=== PATIENT | female | born 2000 | race Caucasian/White ===

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

== ENCOUNTER 2020-03-01 05:17 | Inpatient (IN) | payer SELFPAY ==
[2020-03-01] MEDS ORDERED: Sodium Chloride 0.9% 10 ML SDV IV PRN (05:21)
[2020-03-01] MEDS ORDERED: Citric Acid/Sodium Citrate Solution 30 ML Cup PO ONE (05:21)
[2020-03-01] MEDS ORDERED: Sodium Chloride 0.9% 10 ML Syringe FLUSH PRN (05:21)
[2020-03-01] MEDS ORDERED: Sodium Chloride 0.9% 2.5 ML Syringe FLUSH PRN (05:21)
[2020-03-01] MEDS ORDERED: ceFAZolin 2 GM in Premix Bag 1 BAG IV ONE (05:21)
[2020-03-01] MEDS ORDERED: Oxytocin/0.9 % Sodium Chloride 30 UNIT/500 ML BAG IV SCH (05:30)
[2020-03-01] MEDS: Lactated Ringers 1,000 ML IV SCH ×2 (06:05→06:41)
[2020-03-01] MEDS ORDERED: Morphine PF 10 MG/10 ML SDV ONE (07:19)
[2020-03-01] MEDS ORDERED: Octyl 2-Cyanoacrylate 1 Tube ONE ×2 (07:45→08:58)
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
[2020-03-01] MEDS ORDERED: fentaNYL 100 MCG/2 ML SDV ONE (07:51)
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
[2020-03-01] MEDS ORDERED: ceFAZolin/Dextrose,Iso-Osmotic 2 GM/50 ML Duplex Bag IV ONE (08:06)
[2020-03-01] MEDS ORDERED: Oxytocin 10 Units/1 ML SDV ONE (08:27)
[2020-03-01] MEDS ORDERED: Ondansetron 4 MG/2 ML SDV ONE (08:29)
[2020-03-01] MEDS ORDERED: Dexamethasone 4 MG/ML 5 ML MDV ONE (08:29)
--- NOTE | 2020-03-01 08:33 | PCM.SN.2 ---
- Free Text/Narrative Note: Spinal done with a sterile technique. patient in sitting position, back prepped with chlora prep and draped. 1% lidocaine 3 ml for skin infiltration. 25 g pencan needle. +csf, no heme. There were no paresthesias. 0804 hyperbaric bupivacaine 1.6 ml and 0.20 mg of duramorph given without any paresthesias.. patient maintained communication throughout the entire procedure and tolerated the procedure well. T6 sensory level. one attempt.
[2020-03-01] MEDS ORDERED: Ketorolac 30 MG/ML SDV ONE (08:39)
[2020-03-01] MEDS ORDERED: Tranexamic Acid 1,000 MG in Sodium Chloride 0.9% 100 ML IV PRN (08:47)
[2020-03-01] MEDS ORDERED: Lanolin 100% Cream 7 GM Tube TOP PRN (08:47)
[2020-03-01] MEDS ORDERED: Ondansetron 4 MG/2 ML SDV IVPUSH PRN (08:47)
[2020-03-01] MEDS ORDERED: Methylergonovine 0.2 MG/1 ML Amp IM PRN (08:47)
[2020-03-01] MEDS ORDERED: Misoprostol 200 MCG Tab RECTAL PRN (08:47)
[2020-03-01] MEDS ORDERED: Ibuprofen 800 MG Tab PO PRN (08:47)
[2020-03-01] MEDS ORDERED: Acetaminophen/oxyCODONE 325-5 MG Tab PO PRN (08:47)
[2020-03-01] MEDS ORDERED: diphenhydrAMINE 50 MG/ML SDV IVPUSH PRN ×3 (08:47→11:18)
[2020-03-01] MEDS ORDERED: Oxytocin 10 Units/1 ML SDV IM PRN (08:47)
[2020-03-01] MEDS ORDERED: Bisacodyl 10 MG Supp RECTAL PRN (08:47)
[2020-03-01] MEDS ORDERED: Nalbuphine 10 MG/1 ML Vial IVPUSH PRN ×3 (08:51→11:18)
[2020-03-01] MEDS ORDERED: Naloxone 0.4 MG/ML Syringe IVPUSH PRN ×2 (08:51→11:18)
--- NOTE | 2020-03-01 08:51 | PCM.OPNOTE ---
- General Post-Op/Procedure Note Date of Surgery/Procedure: 03/01/20 Operative Procedure(s): REpeat C/section Pre Op Diagnosis: IUP 39+ previous C/section Post-Op Diagnosis: Same Anesthesia Technique: Spinal Primary Surgeon: Edwar Angeles Consulting Property Manager: Akilah Jaimes Consulting Property Manager: Carly Calvillo EBL in mLs: 800 Surgical Drain/Tube Type: Nephrostomy Complications: None Condition: Good
[2020-03-01] MEDS ORDERED: Lactated Ringers 1,000 ML IV SCH (09:00)
--- NOTE | 2020-03-01 10:38 | PCM.POSTAN ---
POST ANESTHESIA ASSESSMENT - MENTAL STATUS Mental Status: Alert, Oriented - VITAL SIGNS Vital Signs: Last Vital Signs Temp 35.7 C L 03/01/20 09:10 Pulse 94 03/01/20 10:01 Resp 14 03/01/20 10:01 BP 118/61 03/01/20 10:01 Pulse Ox 99 03/01/20 10:01 - RESPIRATORY Respiratory Status: Respiratory Rate WNL, Airway Patent, O2 Saturation Stable - CARDIOVASCULAR CV Status: Blood Pressure Stable, Slow Pulse Rate - GASTROINTESTINAL GI Status: No Symptoms - PAIN Pain Score: 0 - POST OP HYDRATION Hydration Status: Adequate & Stable - OBSERVATIONS Free Text/Narrative:: The patient has no complaints at this time. There were no apparent anesthetic complications at this time. Discharge to floor per criteria.
[2020-03-01] MEDS: Docusate Sodium 100 MG Cap PO SCH ×2 (10:51→22:16)
[2020-03-01] MEDS: Ketorolac 30 MG/ML SDV IVPUSH SCH ×3 (11:38→22:16)
--- NOTE | 2020-03-01 12:07 | PCM.SN.2 ---
- Free Text/Narrative Note: RN called to discuss inability to find nubain order for itching. She was told by the [facility] that we do not have any Nubain, and we might not get any until 2020. Discussed this with the patient, and the alternative which is narcan or benadryl. She refused the benadryl at this time because it makes her itching worse.
--- NOTE | 2020-03-01 12:18 | OR ---
SURGEON: Edwar Angeles MD DATE OF PROCEDURE: 03/01/2020 PREOPERATIVE DIAGNOSES: Intrauterine at 39+ weeks, previous section, admitted for elective repeat section. POSTOPERATIVE DIAGNOSES: Intrauterine at 39+ weeks, previous section, admitted for elective repeat section. OPERATION PERFORMED: Repeat low transverse section. PRIMARY SURGEON: Edwar Anegles MD ASSISTANTS: Akilah Jaimes, certified nurse blood bank laboratory technologist, and Carly Calvillo. ESTIMATED BLOOD LOSS: 800 mL. ANESTHESIA: Spinal, Dr. Alexander. COMPLICATIONS: None. FINDINGS: Male fetus. score reported to be 8 and 9. Weight is not available at the time of the dictation. INDICATIONS FOR SURGERY: This patient had previous section. She is admitted for elective repeat section. DESCRIPTION OF PROCEDURE: The patient was brought to the OR, properly identified, and after adequate level of spinal anesthesia with a Solorio catheter in the bladder, the patient prepped and draped in sterile fashion as usual. Low transverse Pfannenstiel skin incision done. Jono's fascia and rectus fascia were opened in direction of the incision. The 2 recti muscles were . Peritoneal cavity was entered and bladder flap was raised in the usual manner, pushing the bladder away from the lower uterine segment. Low transverse uterine incision was done, extended manually with the hand, and the fetus presentation was in the vertex. The fetus was delivered without any problem, cried immediately, handed to resuscitating team for further resuscitation. The score later on reported to be 8 and 9. The weight is not available at the time of the dictation. Placenta delivered spontaneous, complete, and intact, and repair of the lower uterine segment was done with 2-0 Vicryl continuous interlocking in 2 layers. The peritoneal cavity evacuated completely from all blood and blood clot and closed with 2-0 Vicryl continuous and the rectus fascia was closed with #1 PDS double strand continuous. Jono fascia with 3-0 Vicryl continuous. The skin closed with 3-0 Vicryl on a Jose needle in a subcuticular fashion and Dermabond. Instrument and sponge count was correct. The patient tolerated the procedure well, went to recovery room in stable general condition. JOSUE / NHI /[id number]
[2020-03-02] MEDS: Ketorolac 30 MG/ML SDV IVPUSH SCH ×2 (04:04→08:11)
--- NOTE | 2020-03-02 07:26 | PCM48HPAN ---
Post Anesthesia Note - EVALUATION WITHIN 48HRS OF ANESTHETIC Vital Signs in Normal Range: Yes Patient Participated in Evaluation: Yes Respiratory Function Stable: Yes Airway Patent: Yes Cardiovascular Function Stable: Yes Hydration Status Stable: Yes Pain Control Satisfactory: Yes Nausea and Vomiting Control Satisfactory: Yes Mental Status Recovered: Yes Vital Signs: Last Vital Signs Temp 36.1 C 03/02/20 04:00 Pulse 74 03/02/20 06:40 Resp 17 03/02/20 06:40 BP 119/62 03/02/20 04:00 Pulse Ox 97 03/02/20 06:40
--- NOTE | 2020-03-02 07:38 | PCM.PNPP ---
- General Info Date of Service: 03/02/20 Admission Dx/Problem (Free Text): Patient Status Order with Admit Dx/Problem 03/01/20 05:20 Patient Status [ADT] Routine Admission Diagnosis/Problem Admission Diagnosis/Problem 03/01/20 07:51 at 38 5/7 weeks (BENJY: 03/10/20). Presenting to L&D for repeat section. O+, rubella immune, GBS negative. Functional Status: Reports: Pain Controlled, Tolerating Diet, Ambulating, Urinating - Review of Systems General: Reports: No Symptoms HEENT: Reports: No Symptoms Pulmonary: Reports: No Symptoms Cardiovascular: Reports: No Symptoms Gastrointestinal: Reports: No Symptoms Genitourinary: Reports: No Symptoms Musculoskeletal: Reports: No Symptoms Skin: Reports: No Symptoms Neurological: Reports: No Symptoms Psychiatric: Reports: No Symptoms - General Info Date of Service: 03/02/20 - Patient Data Vital Signs - Most Recent: Last Vital Signs Temp 96.9 F 03/02/20 04:00 Pulse 74 03/02/20 06:40 Resp 17 03/02/20 06:40 BP 119/62 03/02/20 04:00 Pulse Ox 97 03/02/20 06:40 Weight - Most Recent: 280 lb I&O - Last 24 Hours: Intake & Output 03/01/20 03/02/20 03/02/20 22:59 06:59 14:59 Output Total 150 900 Balance -150 -900 Lab Results - Last 24 Hours: Laboratory Results - last 24 hr 03/02/20 Range/Units 05:02 Hgb 9.6 L (12.0-16.0) g/dL Hct 29.8 L (36.0-46.0) % Med Orders - Current: Current Medications Bisacodyl (Dulcolax) 10 mg RECTAL ONETIME PRN PRN Reason: Constipation Diphenhydramine HCl (Benadryl) 25 mg IVPUSH Q4H PRN PRN Reason: Itching Stop: 03/02/20 11:18 Docusate Sodium (Colace) 100 mg PO BID TRELL Last Admin: 03/01/20 22:16 Dose: 100 mg Documented by: Emollient Ointment (Lansinoh Hpa) 0 gm TOP ASDIRECTED PRN PRN Reason: Sore Nipples Oxytocin/Sodium Chloride (Oxytocin 30 Unit/500 Ml-Ns) 30 unit in 500 mls @ 250 mls/hr IV TITRATE [facility] Lactated Ringer's (Ringers, Lactated) 1,000 mls @ 500 mls/hr IV BOLUS [facility] Last Admin: 03/01/20 06:41 Dose: 500 mls/hr Documented by: Lactated Ringer's (Ringers, Lactated) 1,000 mls @ 125 mls/hr IV ASDIRECTED [facility] Last Admin: 03/01/20 10:57 Dose: 125 mls/hr Documented by: Tranexamic Acid 1,000 mg/ (Sodium Chloride) 110 mls @ 660 mls/hr IV ONETIME PRN PRN Reason: Bleeding Ibuprofen (Motrin) 800 mg PO Q8H PRN PRN Reason: mild pain or fever Ketorolac Tromethamine (Toradol) 30 mg IVPUSH Q6H [facility] Stop: 03/02/20 09:01 Last Admin: 03/02/20 04:04 Dose: 30 mg Documented by: Methylergonovine Maleate (Methergine) 0.2 mg IM ONETIME PRN PRN Reason: Excessive Vaginal Bleeding Misoprostol (Cytotec) 1,000 mcg RECTAL ONETIME PRN PRN Reason: excessive bleeding Naloxone HCl (Narcan) 0.1 mg IVPUSH ONETIME PRN PRN Reason: Respiratory Depression Stop: 03/02/20 11:18 Ondansetron HCl (Zofran) 4 mg IVPUSH Q4H PRN PRN Reason: Nausea/Vomiting Oxycodone/Acetaminophen (Percocet 325-5 Mg) 1 tab PO Q4H PRN PRN Reason: Pain (moderate 4-6) Oxycodone/Acetaminophen (Percocet 325-5 Mg) 2 tab PO Q4H PRN PRN Reason: Pain (moderate 4-6) Oxytocin (Pitocin) 10 unit IM ASDIRECTED PRN PRN Reason: Excessive Vaginal Bleeding Sodium Chloride (Saline Flush) 10 ml FLUSH ASDIRECTED PRN PRN Reason: Keep Vein Open Sodium Chloride (Saline Flush) 2.5 ml FLUSH ASDIRECTED PRN PRN Reason: Keep Vein Open Sodium Chloride (Normal Saline) 10 ml IV ASDIRECTED PRN PRN Reason: IV Use Discontinued Medications Cefazolin Sodium/Dextrose (Ancef) Confirm Administered Dose 2 gm IV .STK-MED ONE Stop: 03/01/20 08:07 Citric Acid/Sodium Citrate (Bicitra Solution) 30 ml PO ONETIME ONE Stop: 03/01/20 05:22 Dexamethasone (Dexamethasone) Confirm Administered Dose 20 mg .ROUTE .STK-MED ONE Stop: 03/01/20 08:30 Diphenhydramine HCl (Benadryl) 25 mg IVPUSH Q4H PRN PRN Reason: Itching Stop: 03/02/20 08:54 Last Admin: 03/01/20 09:28 Dose: 25 mg Documented by: Fentanyl (Sublimaze) Confirm Administered Dose 100 mcg .ROUTE .STK-MED ONE Stop: 03/01/20 07:52 Cefazolin Sodium/Dextrose 2 gm (/ Premix) 50 mls @ 100 mls/hr IV ONETIME ONE Stop: 03/01/20 05:50 Acetaminophen (Ofirmev) Confirm Administered Dose 100 mls @ as directed .ROUTE .STK-MED ONE Stop: 03/01/20 07:48 Cefazolin Sodium/Dextrose (Ancef) Confirm Administered Dose 50 mls @ as directed .ROUTE .STK-MED ONE Stop: 03/01/20 08:11 Ketorolac Tromethamine (Toradol) Confirm Administered Dose 30 mg .ROUTE .STK-MED ONE Stop: 03/01/20 08:40 Morphine Sulfate (Duramorph Pf) Confirm Administered Dose 10 mg .ROUTE .STK-MED ONE Stop: 03/01/20 07:20 Octyl Cyanoacrylate (Dermabond Advance) Confirm Administered Dose 1 applic .ROUTE .STK-MED ONE Stop: 03/01/20 07:46 Octyl Cyanoacrylate (Dermabond Advance) Confirm Administered Dose 1 applic .ROUTE .STK-MED ONE Stop: 03/01/20 08:59 Ondansetron HCl (Zofran) Confirm Administered Dose 4 mg .ROUTE .STK-MED ONE Stop: 03/01/20 08:30 Oxytocin (Pitocin) Confirm Administered Dose 20 unit .ROUTE .STK-MED ONE Stop: 03/01/20 08:28 - Infant Interaction Infant Disposition, : [place] in Room with Family Infant Interaction: Holding Infant Feeding: Bottle Fed Support Person: - Recovery Exam Fundal Tone: Firm Fundal Level: 2 Fingerbreadths Below Umbilicus Fundal Placement: Midline Lochia Amount: Small Lochia Color: Rubra/Red Perineum Description: Intact, Minimal Bruising/Swelling Episiotomy/Laceration: None Bladder Status: Voiding Urinary Elimination: Voided - Exam General: Alert, Oriented, Cooperative, No Acute Distress Lungs: Clear to Auscultation, Normal Respiratory Effort Cardiovascular: Regular Rate, Regular Rhythm GI/Abdominal Exam: Soft, Non-Tender Extremities: Normal Inspection, Normal Range of Motion, Non-Tender, Normal Capillary Refill Skin: Warm, Dry, Intact Wound/Incisions: Dressing Dry and Intact Neurological: No New Focal Deficit, Normal Speech, Normal Tone, Strength Equal Bilateral Psy/Mental Status: Alert, Normal Affect, Normal Mood - Problem List & Annotations (1) Supervision of normal IUP (intrauterine ) in multigravida SNOMED Code(s): 858894354, 160836347, 223430222 Code(s): Z34.80 - ENCOUNTER FOR SUPRVSN OF NORMAL , UNSP TRIMESTER Status: Acute Priority: High Current Visit: Yes Qualifiers: Trimester: third trimester Qualified Code(s): Z34.83 - Encounter for supervision of other normal , third trimester (2) delivery delivered SNOMED Code(s): 616511784 Code(s): O82 - ENCOUNTER FOR DELIVERY WITHOUT INDICATION Status: Acute Priority: High Current Visit: Yes - Problem List Review Problem List Initiated/Reviewed/Updated: Yes - Plan Plan:: Admit A: at 38 5/7 weeks; O+, rubella immune, GBS positive. P: Repeat delivery. Post Op Day 1 A: Ambulating, urinating, and tolerating diet. Denies pain at this time. and baby in room with patient. Bottle feeding infant. No concerns at this time. P: Routine plan of care; Dr. Angeles updated.
[2020-03-02] MEDS: Acetaminophen/oxyCODONE 325-5 MG Tab PO PRN ×3 (08:09→23:51)
[2020-03-02] MEDS: Docusate Sodium 100 MG Cap PO SCH ×2 (08:09→20:30)
[2020-03-03] MEDS: Acetaminophen/oxyCODONE 325-5 MG Tab PO PRN ×3 (04:28→12:20)
[2020-03-03] MEDS: Docusate Sodium 100 MG Cap PO SCH (08:16)
--- NOTE | 2020-03-03 11:35 | PCM.DCSUM1 ---
Discharge Summary - Hospital Course Diagnosis: Stroke: No - Discharge Data Discharge Date: 03/03/20 Discharge Disposition: Home, Self-Care 01 Condition: Good - Referral to Home Health Primary Care Physician: PCP None - Patient Summary/Data Operative Procedure(s) Performed: REpeat C/section - Patient Instructions Diet: Usual Diet as Tolerated Activity: As Tolerated Driving: Do Not Drive - Discharge Plan Home Medications: Home Meds Mv-Mn/Iron/FA/Herbal/Digestive [ One Tablet] 1 tab PO DAILY 02/16/18 [History] Patient Handouts: Delivery, Care After Referrals: [facility] [Outside] Akilah Jaimes CNM, [employer] [Mid-] - 04/12/20 2:00 pm Edwar Angeles MD [Physician] - 03/07/20 2:45 pm - Discharge Summary/Plan Comment DC Time >30 min.: Yes - General Info Date of Service: 03/03/20 Functional Status: Reports: Pain Controlled - Review of Systems General: Reports: No Symptoms HEENT: Reports: No Symptoms Pulmonary: Reports: No Symptoms Cardiovascular: Reports: No Symptoms Gastrointestinal: Reports: No Symptoms Genitourinary: Reports: No Symptoms Musculoskeletal: Reports: No Symptoms Skin: Reports: No Symptoms Neurological: Reports: No Symptoms Psychiatric: Reports: No Symptoms - Patient Data Vitals - Most Recent: Last Vital Signs Temp 36.3 C 03/03/20 08:00 Pulse 92 03/03/20 08:00 Resp 19 03/03/20 08:00 BP 109/58 L 03/03/20 08:00 Pulse Ox 96 03/03/20 08:00 Weight - Most Recent: 127.006 kg Lab Results - Last 24 hrs: Laboratory Results - last 24 hr 03/01/20 Range/Units 06:00 RPR Non-Reac (Non-Reac) Med Orders - Current: Current Medications Bisacodyl (Dulcolax) 10 mg RECTAL ONETIME PRN PRN Reason: Constipation Docusate Sodium (Colace) 100 mg PO BID TRELL Last Admin: 03/03/20 08:16 Dose: 100 mg Documented by: Emollient Ointment (Lansinoh Hpa) 0 gm TOP ASDIRECTED PRN PRN Reason: Sore Nipples Oxytocin/Sodium Chloride (Oxytocin 30 Unit/500 Ml-Ns) 30 unit in 500 mls @ 250 mls/hr IV TITRATE TRELL Lactated Ringer's (Ringers, Lactated) 1,000 mls @ 500 mls/hr IV BOLUS TRELL Last Admin: 03/01/20 06:41 Dose: 500 mls/hr Documented by: Lactated Ringer's (Ringers, Lactated) 1,000 mls @ 125 mls/hr IV ASDIRECTED TRELL Last Admin: 03/01/20 10:57 Dose: 125 mls/hr Documented by: Tranexamic Acid 1,000 mg/ (Sodium Chloride) 110 mls @ 660 mls/hr IV ONETIME PRN PRN Reason: Bleeding Ibuprofen (Motrin) 800 mg PO Q8H PRN PRN Reason: mild pain or fever Last Admin: 03/03/20 08:16 Dose: 800 mg Documented by: Methylergonovine Maleate (Methergine) 0.2 mg IM ONETIME PRN PRN Reason: Excessive Vaginal Bleeding Misoprostol (Cytotec) 1,000 mcg RECTAL ONETIME PRN PRN Reason: excessive bleeding Ondansetron HCl (Zofran) 4 mg IVPUSH Q4H PRN PRN Reason: Nausea/Vomiting Oxycodone/Acetaminophen (Percocet 325-5 Mg) 1 tab PO Q4H PRN PRN Reason: Pain (moderate 4-6) Oxycodone/Acetaminophen (Percocet 325-5 Mg) 2 tab PO Q4H PRN PRN Reason: Pain (moderate 4-6) Last Admin: 03/03/20 08:15 Dose: 2 tab Documented by: Oxytocin (Pitocin) 10 unit IM ASDIRECTED PRN PRN Reason: Excessive Vaginal Bleeding Sodium Chloride (Saline Flush) 10 ml FLUSH ASDIRECTED PRN PRN Reason: Keep Vein Open Sodium Chloride (Saline Flush) 2.5 ml FLUSH ASDIRECTED PRN PRN Reason: Keep Vein Open Sodium Chloride (Normal Saline) 10 ml IV ASDIRECTED PRN PRN Reason: IV Use Discontinued Medications Cefazolin Sodium/Dextrose (Ancef) Confirm Administered Dose 2 gm IV .STK-MED ONE Stop: 03/01/20 08:07 Citric Acid/Sodium Citrate (Bicitra Solution) 30 ml PO ONETIME ONE Stop: 03/01/20 05:22 Dexamethasone (Dexamethasone) Confirm Administered Dose 20 mg .ROUTE .STK-MED ONE Stop: 03/01/20 08:30 Diphenhydramine HCl (Benadryl) 25 mg IVPUSH Q4H PRN PRN Reason: Itching Stop: 03/02/20 08:54 Last Admin: 03/01/20 09:28 Dose: 25 mg Documented by: Diphenhydramine HCl (Benadryl) 25 mg IVPUSH Q4H PRN PRN Reason: Itching Stop: 03/02/20 11:18 Fentanyl (Sublimaze) Confirm Administered Dose 100 mcg .ROUTE .STK-MED ONE Stop: 03/01/20 07:52 Cefazolin Sodium/Dextrose 2 gm (/ Premix) 50 mls @ 100 mls/hr IV ONETIME ONE Stop: 03/01/20 05:50 Acetaminophen (Ofirmev) Confirm Administered Dose 100 mls @ as directed .ROUTE .STK-MED ONE Stop: 03/01/20 07:48 Cefazolin Sodium/Dextrose (Ancef) Confirm Administered Dose 50 mls @ as directed .ROUTE .STK-MED ONE Stop: 03/01/20 08:11 Ketorolac Tromethamine (Toradol) Confirm Administered Dose 30 mg .ROUTE .STK-MED ONE Stop: 03/01/20 08:40 Ketorolac Tromethamine (Toradol) 30 mg IVPUSH Q6H TRELL Stop: 03/02/20 09:01 Last Admin: 03/02/20 08:11 Dose: Not Given Documented by: Morphine Sulfate (Duramorph Pf) Confirm Administered Dose 10 mg .ROUTE .STK-MED ONE Stop: 03/01/20 07:20 Naloxone HCl (Narcan) 0.1 mg IVPUSH ONETIME PRN PRN Reason: Respiratory Depression Stop: 03/02/20 11:18 Octyl Cyanoacrylate (Dermabond Advance) Confirm Administered Dose 1 applic .ROUTE .STK-MED ONE Stop: 03/01/20 07:46 Octyl Cyanoacrylate (Dermabond Advance) Confirm Administered Dose 1 applic .ROUTE .STK-MED ONE Stop: 03/01/20 08:59 Ondansetron HCl (Zofran) Confirm Administered Dose 4 mg .ROUTE .STK-MED ONE Stop: 03/01/20 08:30 Oxytocin (Pitocin) Confirm Administered Dose 20 unit .ROUTE .STK-[employer] ONE Stop: 03/01/20 08:28 - Exam General: Reports: Alert, Oriented HEENT: Reports: Pupils Equal, Pupils Reactive, EOMI, Mucous Membr. Moist/[place] Neck: Reports: Supple Lungs: Reports: Clear to Auscultation, Normal Respiratory Effort Cardiovascular: Reports: Regular Rate, Regular Rhythm GI/Abdominal Exam: Normal Bowel Sounds, Soft, Non-Tender, No Organomegaly, No Distention, No Abnormal Bruit, No Mass, Pelvis Stable (Female) Exam: Normal External Exam, Normal Speculum Exam, Normal Bimanual Exam Rectal (Female) Exam: Normal Exam, Normal Rectal Tone Back Exam: Reports: Normal Inspection, Full Range of Motion Extremities: Normal Inspection, Normal Range of Motion, Non-Tender, No Pedal Edema, Normal Capillary Refill Skin: Reports: Warm, Dry, Intact Wound/Incisions: Reports: Healing Well Neurological: Reports: No New Focal Deficit Psy/Mental Status: Reports: Alert, Normal Affect, Normal Mood
== END 2020-03-03 12:30 | disposition home or self-care (01) | DRG 788 ==
LOC: MW.OB 05:17
PROVIDERS: ADMIT Obstetrics & Gynecology; ATTEND Obstetrics & Gynecology
PROC: 10D00Z1 Extraction of Products of Conception, Low, Open Approach (ICD-10-PCS; principal; 2020-03-01)
DX: O34.211 Maternal care for low transverse scar from previous cesarean delivery (principal); Z3A.38 38 weeks gestation of pregnancy; Z37.0 Single live birth; Z91.013 Allergy to seafood; Z91.09 Other allergy status, other than to drugs and biological substances; Z91.018 Allergy to other foods
CPT/HCPCS: 36415; 59025; 85014; 85018; 85027; 86592; 86850; 86900; 86901; A9270-GY; J0131; J0690; J1100; J1200; J1885; J2270; J2405; J2590; J3010; J7120